=== PATIENT | male | born 1985 | race Hispanic/Latino ===

== ENCOUNTER 2018-09-23 15:00 | Inpatient (IN) | payer OTHER ==
[2018-09-23 16:38] LABS: HEMATOCRIT 45.6 % (42.0-52.0); HEMOGLOBIN 14.8 g/dl (13.5-17.5); MEAN CORPUSCULAR HEMOGLOBIN 28.7 pg (27.0-33.0); MEAN CORPUSCULAR HGB CONC 32.5 g/dl (32.0-36.5); MEAN CORPUSCULAR VOLUME 88.5 fl (80.0-96.0); PLATELET COUNT, AUTOMATED 208 10^3/uL (150-450); RED BLOOD COUNT 5.15 10^6/uL (4.30-6.10); RED CELL DISTRIBUTION WIDTH 12.6 % (11.5-14.5); WHITE BLOOD COUNT 5.7 10^3/uL (4.0-10.0)
[2018-09-23 17:00] LABS: AMPHETAMINES LEVEL URINE NEGATIVE (NEGATIVE); BARBITURATES URINE NEGATIVE (NEGATIVE); BENZODIAZEPINES URINE NEGATIVE (NEGATIVE); CANNABINOIDS URINE NEGATIVE (NEGATIVE); COCAINE METABOLITE URINE NEGATIVE (NEGATIVE); METHADONE URINE NEGATIVE (NEGATIVE); OPIATES URINE NEGATIVE (NEGATIVE); PHENCYCLIDINE URINE NEGATIVE (NEGATIVE)
[2018-09-23 17:08] LABS: ACETAMINOPHEN LEVEL < 2.0 UG/ML (10.0-30.0); ALBUMIN 4.3 GM/DL (3.2-5.2); ALBUMIN/GLOBULIN RATIO 1.16 (1.00-1.93); ALKALINE PHOSPHATASE 85 U/L (45-117); ALT/SGPT 26 U/L (12-78); ANION GAP 5 MEQ/L (8-16); AST/SGOT 14 U/L (7-37); BILIRUBIN,DIRECT < 0.1 MG/DL (0.0-0.2); BILIRUBIN,TOTAL 0.3 MG/DL (0.2-1.0); BLOOD UREA NITROGEN 9 MG/DL (7-18); CALCIUM LEVEL 9.6 MG/DL (8.5-10.1); CARBON DIOXIDE LEVEL 30 MEQ/L (21-32); CHLORIDE LEVEL 104 MEQ/L (98-107); CREATININE FOR GFR 0.97 MG/DL (0.70-1.30); ETHYL ALCOHOL (ETHANOL) < 0.003 % (0.000-0.010); GLOMERULAR FILTRATION RATE > 60.0 (>60); GLUCOSE, FASTING 85 MG/DL (70-100); POTASSIUM SERUM 4.6 MEQ/L (3.5-5.1); SALICYLATE LEVEL < 1.7 MG/DL (5.0-30.0); SODIUM LEVEL 139 MEQ/L (136-145)
[2018-09-24] MEDS: NICOTINE 21MG/24HR 1 EA TRANSDERMAL TD (09:00)
[2018-09-24] MEDS ORDERED: MOM 30ML SUSPENSION UDC PO (10:45)
[2018-09-24] MEDS ORDERED: MAALOX 30 ML SUSP *UDC PO (10:45)
[2018-09-24] MEDS ORDERED: ACETAMINOPHEN TAB 650MG DOSE (2X325MG) PO (10:45)
[2018-09-24] MEDS: FEXOFENADINE 60 MG TAB PO (16:33)
[2018-09-24] MEDS ORDERED: FEXOFENADINE 60 MG TAB PO (21:00)
[2018-09-24] MEDS: PRAZOSIN 1 MG CAP PO (22:31)
[2018-09-25] MEDS: NICOTINE 21MG/24HR 1 EA TRANSDERMAL TD (08:19)
[2018-09-25] MEDS: SERTRALINE HCL 50 MG TAB PO (09:04)
[2018-09-25] MEDS: FEXOFENADINE 60 MG TAB PO (09:04)
[2018-09-25] MEDS: PRAZOSIN 1 MG CAP PO (20:09)
[2018-09-26] MEDS: FEXOFENADINE 60 MG TAB PO (09:00)
[2018-09-26] MEDS: NICOTINE 21MG/24HR 1 EA TRANSDERMAL TD (09:00)
[2018-09-26] MEDS: SERTRALINE HCL 50 MG TAB PO (09:00)
[2018-09-26] MEDS: PRAZOSIN 1 MG CAP PO (20:31)
[2018-09-26] MEDS: traZODone 50 MG TAB PO (20:31)
[2018-09-27] MEDS: NICOTINE 21MG/24HR 1 EA TRANSDERMAL TD (09:00)
[2018-09-27] MEDS: SERTRALINE HCL 50 MG TAB PO (09:13)
[2018-09-27] MEDS: FEXOFENADINE 60 MG TAB PO (09:14)
[2018-09-27] MEDS: PRAZOSIN 1 MG CAP PO (20:41)
[2018-09-27] MEDS: traZODone 50 MG TAB PO (20:41)
[2018-09-28] MEDS: NICOTINE 21MG/24HR 1 EA TRANSDERMAL TD (08:17)
[2018-09-28] MEDS: SERTRALINE HCL 50 MG TAB PO (08:17)
[2018-09-28] MEDS: FEXOFENADINE 60 MG TAB PO (08:17)
== END 2018-09-28 10:15 | disposition home or self-care (01) | DRG 885 ==
LOC: M ED INP 09-24 10:32 → M ED 15:00 → M PSY 09-24 11:15
PROVIDERS: Psychiatry & Neurology Psychiatry
DX: F33.9 Major depressive disorder, recurrent, unspecified (principal); F43.10 Post-traumatic stress disorder, unspecified; J30.9 Allergic rhinitis, unspecified; F17.290 Nicotine dependence, other tobacco product, uncomplicated; Z79.899 Other long term (current) drug therapy